=== PATIENT | female | born 1985 | race African-American/Black ===

== ENCOUNTER 2021-04-12 10:40 | Emergency (ER) | payer OTHER | END 2021-04-12 11:00 | disposition left against medical advice (07) | LOC: ED 10:40 | DX: Z53.21 Procedure and treatment not carried out due to patient leaving prior to being seen by health care provider (principal) ==

== ENCOUNTER 2021-07-24 15:19 | Inpatient (IN) | payer OTHER ==
[~2021-07-24] VITALS: Ht 154.9 cm; Wt 48.5 kg
[2021-07-24 15:39] VITALS: BP 119/77
[2021-07-24 16:52] LABS: BASO # 0.1 10*3/uL (0.0-0.1); BASO % 0.9 % (0.0-1.0); EOS # 0.2 10*3/uL (0.0-0.4); EOS % 2.1 % (1.0-4.0); LYMPH # 3.3 10*3/uL (1.3-4.4); LYMPH % 47.4 % (27.0-41.0); MEAN CELL VOLUME 69.6 fl (81.0-99.0); MEAN CORPUSCULAR HGB 22.7 pg (27.0-31.0); MEAN CORPUSCULAR HGB CONC 32.6 g/dl (33.0-37.0); MEAN PLATELET VOLUME 10.3 fl (9.6-12.3); MONO # 0.5 10*3/uL (0.1-1.0); MONO % 6.8 % (3.0-9.0); NEUT % 42.7 % (47.0-73.0); PLATELET COUNT AUTOMATED 223 10*3/uL (130-400); RED BLOOD COUNT 5.03 10*6/uL (4.10-5.10); RED CELL DISTRI WIDTH 14.9 % (0-14.5)
[2021-07-24 17:00] VITALS: BP 96/56
[2021-07-24 17:12] LABS: ALKALINE PHOSPHATASE 70 U/L (45-117); BETA-HCG, QUANT < 1.0 mIU/mL (1-3); BUN 15 mg/dl (7-24); CHLORIDE 107 mmol/L (98-107); CREATININE 0.76 mg/dL (0.55-1.02); POTASSIUM 4.3 mmol/L (3.5-5.1); SGOT/AST 21 IU/L (3-35); SGPT/ALT 32 U/L (12-78); SODIUM 136 mmol/L (136-145); TOTAL PROTEIN 7.1 gm/dL (6.4-8.2)
[2021-07-24 19:55] VITALS: BP 78/48
[2021-07-24 21:00] VITALS: BP 84/50
[2021-07-24 22:32] VITALS: BP 82/52
[2021-07-24 23:00] VITALS: BP 84/50
[2021-07-25] VITALS (7 sets, daily range): BP systolic 82–140; BP diastolic 40–82
[2021-07-26] VITALS: BP 138/96
[2021-07-26 04:00] VITALS: BP 130/64
[2021-07-26 08:00] VITALS: BP 166/98
== END 2021-07-26 11:00 | disposition left against medical advice (07) | DRG 770 ==
LOC: ED 15:19 → 5E 16:24 → EDHOLD 16:24 → 5E 16:39
PROVIDERS: Emergency Medicine; ADMIT Internal Medicine; ATTEND Internal Medicine
DX: F11.23 Opioid dependence with withdrawal (principal); F14.10 Cocaine abuse, uncomplicated; E43 Unspecified severe protein-calorie malnutrition; D50.9 Iron deficiency anemia, unspecified; G25.81 Restless legs syndrome; F17.210 Nicotine dependence, cigarettes, uncomplicated; R73.9 Hyperglycemia, unspecified; Z53.29 Procedure and treatment not carried out because of patient's decision for other reasons; F41.9 Anxiety disorder, unspecified; Z82.5 Family history of asthma and other chronic lower respiratory diseases; Z71.6 Tobacco abuse counseling; Z68.20 Body mass index [BMI] 20.0-20.9, adult